=== PATIENT | female | born 1960 | race Caucasian/White ===

== ENCOUNTER 2020-12-17 14:26 | Outpatient (REF) | payer OTHER, SELFPAY ==
[2020-12-17 15:41] LABS: Alanine Aminotransferase 11 U/L (0-31); Albumin Level 4.7 g/dL (3.5-5.0); Alkaline Phosphatase 48 U/L (39-117); Aspartate Amino Transferase 13 U/L (5-31); Bilirubin Direct < 0.2 mg/dL (0.0-0.5); Bilirubin Total 0.3 mg/dL (0.0-1.0); Total Protein 7.3 g/dL (6.5-8.0)
== END 2020-12-17 14:27 | disposition home or self-care (01) ==
LOC: HO.LAB 14:26
PROVIDERS: PCP Internal Medicine; Visit Provider Psychiatry & Neurology Neurology
DX: G40.209 Localization-related (focal) (partial) symptomatic epilepsy and epileptic syndromes with complex partial seizures, not intractable, without status epilepticus (principal)
CPT/HCPCS: 36415; 80076

== ENCOUNTER 2021-01-28 16:38 | Emergency (ER) | payer OTHER, SELFPAY ==
--- NOTE | ~2021-01-28 | CT_ITS ---
EXAMINATION: CT HEAD WITHOUT CONTRAST CLINICAL INFORMATION: Headache COMPARISON: MR dated 07/23/2015 TECHNIQUE: Contiguous axial imaging was performed from the skull base to vertex without intravenous administration of contrast. This CT examination was performed using dose optimization techniques as appropriate, variously including the following: *Automated exposure control *Adjustment of mA and/or kV according to patient size (this includes techniques or standardized protocols for targeted exams where dose is matched to indication/reason for exam; i.e. extremities or head) *Use of iterative reconstruction technique DLP: 567 mGy-cm FINDINGS: There is no evidence of acute intracranial hemorrhage or territorial infarction. No abnormal mass effect or midline shift is seen. Brannon to white matter differentiation is well preserved. No extra-axial fluid collections are identified. The ventricles are normal in size. There is no abnormal attenuation within the brain parenchyma. The osseous structures and soft tissues are normal. The mastoid air cells and visualized portions of the paranasal sinuses are well aerated. CT/CT head/brain wo con IMPRESSION: No acute intracranial pathology. We understand the patient is to undergo CTA which is ordered.
--- NOTE | ~2021-01-28 | CT_ITS ---
EXAMINATION: CT ANGIOGRAM BRAIN, HEAD CLINICAL INFORMATION: Headaches. COMPARISON: Concurrent CT scan of the head 01/28/2021, and MRI brain 07/23/2015. TECHNIQUE: Test bolus sequences followed by intravenous administration 75 mL of Omnipaque 350 intravenous contrast. Helical imaging was performed in the axial plane from the skull base to the vertex. Delayed postcontrast imaging of the head was also performed. The data was processed at the electroencephalogram technologist workstation for generation of MIP sequences. Three-dimensional volume rendered reformatted images were also generated at an offline 3-D workstation. The degree of stenosis determined by NASCET criteria. This CT examination was performed using dose optimization techniques as appropriate, variously including the following: *Automated exposure control *Adjustment of mA and/or kV according to patient size (this includes techniques or standardized protocols for targeted exams where dose is matched to indication/reason for exam; i.e. extremities or head) *Use of iterative reconstruction technique DLP: 2440 mGy-cm FINDINGS: CT Head: There is no evidence of acute intracranial hemorrhage or territorial infarction. No abnormal mass-effect or midline shift is seen. Brannon to white matter differentiation is well preserved. No extra-axial fluid collections are identified. The study redemonstrates a right frontal lobe developmental venous anomaly. The ventricles are normal in size. There is no abnormal attenuation within the brain parenchyma. There are no acute osseous findings. The soft tissues are normal. There is an area of sclerosis in the lateral recess of the right sphenoid sinus, which are consistent with a small osteoma. The mastoid air cells and visualized portions of the paranasal sinuses are well-aerated. CTA Head: In the anterior circulation, there is slight asymmetry of the caliber of the cavernous internal carotid arteries, slightly more prominent on the left. However, the vessels have smooth caliber. The A1 segment of the right anterior cerebral artery is hypoplastic, which is likely a normal variant, and both A2 segments of the anterior cerebral arteries arise off the left anterior cerebral artery A1 segment. The middle cerebral arteries bilaterally demonstrate normal caliber with no evidence of focal stenosis, aneurysm or vascular malformation. There is normal arborization of the middle cerebral artery branches. As described above there is a right frontal lobe developmental venous anomaly. In the posterior circulation, the right vertebral artery is dominant. The vertebral arteries intradurally have uniform caliber. The basilar artery appears normal. The right posterior cerebral artery has a origin and arises off the anterior circulation. Both posterior cerebral arteries are widely patent The venous sinuses opacify normally. CT/CT angio head IMPRESSION: 1. There are no acute bleeds or territorial infarcts. No masses are demonstrated. There is a right frontal lobe developmental venous anomaly. 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 2. There is slight asymmetry of the caliber of the intracranial internal carotid arteries, slightly more prominent on the left, but the vessels have smooth caliber bilaterally. The right posterior cerebral artery arises directly off the anterior circulation, which is a normal variant. There is no evidence of focal stenosis or aneurysm.
[2021-01-28 16:45] VITALS: BP 179/95; PULSE 86; RESP 19; TEMP 36.6; O2SAT 100; BMI 23.0
--- NOTE | 2021-01-28 17:12 | ED_ITS ---
HPI - Neuro Symptoms/Deficit General Chief Complaint: Neuro Symptoms/Deficit Stated Complaint: Headache/Confusion Time Seen by Provider: 01/28/21 16:55 Source: patient Mode of arrival: ambulatory Limitations: no limitations History of Present Illness HPI Narrative: This is a 60-year-old female history of migraine was sent from Dr. Newsome (neurology) office for evaluation of status migrainous associated with involuntary jerky movement. Symptoms started 4 days ago the migraine headache is constant for the past 4 d ays respond partially to Excedrin migraine now it is 5/10, it is localized to the right side of the head. Headache is associated with involuntary jerking movement of upper extremities without loss of consciousness, patient is aware of the symptoms. Patient otherwise declined any other symptoms. Related Data Allergies Allergy/AdvReac Type Severity Reaction Status Date / Time No Known Allergies Allergy Verified 01/28/21 16:44 Review of Systems Review of Systems: All other systems are reviewed and are negative Constitutional: Reports as per HPI and Reports no additional constitutional complaints Eyes: Reports as per HPI and Reports no additional eye complaints Reports system reviewed and no additional complaints, except as documented Cardiovascular: Reports as per HPI and Reports no additional cardiovascular complaints Respiratory: Reports as per HPI and Reports no additional respiratory complaints Gastrointestinal: Reports as per HPI and Reports no additional gastrointestinal complaints Genitourinary: Reports no additional female genitourinary complaints Musculoskeletal: Reports no additional musculoskeletal complaints Skin/Breast: Reports system reviewed and no additional complaints, except as docu Psychiatric: Reports no additional psychiatric complaints Endocrine: Reports no additional endocrine complaints Hematologic/Lymphatic: Reports no additional hematologic/lymphatic complaints Allergic/Immunologic: Reports no additional allergic/immunologic complaints Reports system reviewed and no additional complaints, except as documented and Reports Abnormal speech present [facility] Social History Social History Alcohol intake: unknown Patient Tobacco Use Status: Never used Tobacco Use of substances other than those prescribed or required for medical reasons: No Advance Directives: No Advance Directives Information Provided: No Physical Exam Vital Signs: Vital Signs: Last Vital Signs Temp 98.1 F 01/28/21 19:03 Pulse 87 01/28/21 22:04 Resp 14 01/28/21 22:04 BP 121/62 01/28/21 22:04 Pulse Ox 100 01/28/21 22:04 Body Mass Index 23.0 Vital signs have been reviewed as appeared to be correct. Blood pressure normal. Heart rate normal. Respiration rate normal. Temperature normal. Oxygen saturation normal. Appearance: Alert. Oriented X3. No acute distress. Head: Normal external exam. Normocephalic. Atraumatic. No Gill signs noted. No raccoon eyes noted Eyes: PERRLA. EOMI. Conjunctiva and sclera normal. Eyelids normal. ENT: TM's Normal. Pharynx normal. Uvula midline. Moist mucous membranes. No trismus noted. No drooling noted. No muffled voice noted. Neck: Normal inspection. Neck supple. FROM. No adenopathy. Thyroid Normal. No meningeal signs. No neck mass noted. CVS: Normal heart rate and rhythm. Heart sound normal. No murmurs noted. Pulses normal throughout. Respiratory: No respiratory distress. Painless inspiration. Breath sounds normal. No wheezes/rales/rhonchi noted. Chest nontender. No accessory muscle usage noted or decreased air movement noted. Abdomen: Soft and nontender. Bowel sounds normal in all 4 quadrants. No distention noted. No organomegaly noted. No visible injury noted. Back: No CVA tenderness. Full range of motion noted. Skin: Skin warm and dry. Normal skin color. Normal skin turgor. No rashes/lesions/lacerations noted. Extremities: No lower extremity edema. Extremities exhibit normal range of motion. Extremities nontender. Neuro: Oriented X 3. Cranial nerve exam: II-XII are grossly intact No motor deficit. No sensory deficit. Reflexes normal. Course Course Course Narrative: Assessment and plan. 60-year-old female known history of migraine was sent from the neurology office for suspicion of status migrainosus, patient received a g of Solu-Medrol and pain medication now patient feels better, CT/CTA of the head showed no acute pathology, the case was discussed with Dr. Newsome patient to be discharged and follow-up with them as an outpatient. Patient now feels better with no symptoms no nausea or vomiting, with diminished of the involuntary jerky movements. MDM - Neuro Symptoms/Deficit Medical Records Attestation: I reviewed the patient's medical records. Lab Data Attestation: I reviewed the patient's lab results. Result diagrams: 01/28/21 18:37 01/28/21 18:37 Labs: Lab Results 01/28/21 01/28/21 01/28/21 Range/Units 18:37 18:37 19:07 WBC 6.0 (4.8-10.8) X10*3/uL RBC 4.24 (4.20-5.50) X10*6/uL Hgb 13.7 (12.0-16.0) g/dl Hct 40.8 (37.0-47.0) % MCV 96.2 (80.0-98.0) fL MCH 32.3 (27.0-33.0) pg MCHC 33.6 (31.0-35.0) g/dl RDW 11.9 (11.0-16.0) % Plt Count 222 (160-400) X10*3/uL MPV 10.5 (9.4-12.3) fL Immature Gran % (Auto) 0.3 (0.0-0.4) % Neut % (Auto) 40.8 L (45-73) % Lymph % (Auto) 49.2 H (20-40) % Love % (Auto) 7.8 (2-11) % Eos % (Auto) 0.7 (0-4) % Baso % (Auto) 1.2 (0-2) % Lymph # (Auto) 3.0 (1.2-4.9) X10*3/uL Love # (Auto) 0.5 (0.1-1.2) X10*3/uL Eos # (Auto) 0.0 (0.0-0.4) X10*3/uL Baso # (Auto) 0.1 (0.0-0.2) X10*3/uL Abs Immat Gran (auto) 0.02 (0.00-0.03) X10*3/uL Absolute Neuts (auto) 2.5 (2.0-8.3) x10*3/uL Absolute Nucleated RBC 0.000 (0.0-0.012) X10*3/uL Nucleated RBC % (auto) 0.0 (0.0-0.2) /100WBC Sodium 138 (135-145) mmol/L Potassium 4.4 (3.3-5.1) mmol/L Chloride 103 (96-108) mmol/L Carbon Dioxide 26 (22-29) mmol/L Anion Gap 13 (12-20) BUN 17 H (9-16) mg/dL Creatinine 0.69 (0.5-1.4) mg/dL Estim Creat Clear Calc 71.7 Estimated GFR > 60 Random Glucose 92 (60-115) mg/dL Calcium 9.1 (8.4-10.2) mg/dL Total Bilirubin 0.5 (0.0-1.0) mg/dL Direct Bilirubin 0.2 (0.0-0.5) mg/dL AST 13 (5-31) U/L ALT 11 (0-31) U/L Alkaline Phosphatase 47 (39-117) U/L Total Protein 7.2 (6.5-8.0) g/dL Albumin 4.5 (3.5-5.0) g/dL Lipase 50 (8-78) U/L Urine Color STRAW Urine Appearance CLEAR Urine pH 6.0 (5.0-8.0) Ur Specific [place] <= 1.005 (1.005-1.025) Urine Protein NEG (NEG-TRACE) MG/DL Urine Glucose (UA) NEG (NEG) MG/DL Urine Ketones NEG (NEG) MG/DL Urine Blood 2+ H (NEG) Urine Nitrite NEG (NEG) Ur Leukocyte Esterase NEG (NEG) Urine RBC 5-9 H (0) /HPF Urine WBC 0-2 (0-4) /HPF Ur Squamous Epith Cells TRACE /LPF Urine Bacteria TRACE /LPF Imaging Data CT scan - head: Radiologist's impression: No acute intracranial pathology Head CT angiogram: Radiologist's impression: 1. There are no acute bleeds or territorial infarcts. No masses are demonstrated. There is a right frontal lobe developmental venous anomaly. 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 ? 2. There is slight asymmetry of the caliber of the intracranial internal carotid arteries, slightly more prominent on the left, but the vessels have smooth caliber bilaterally. The right posterior cerebral artery arises directly off the anterior circulation, which is a normal variant. There is no evidence of focal stenosis or aneurysm. Discharge Plan Discharge Clinical Impression: Migraine Patient Disposition: Home, Self-Care Instructions: Migraine Headache (ED) Referrals: Rufus Pavon MD [Primary Care Provider] - 2 days Rod Newsome MD [Physician] - 2 days
[2021-01-28] MEDS: 0.9 % Sodium Chloride 1,000 ML 999 ML IVCONT (17:34)
[2021-01-28] MEDS: Morphine Sulfate 2 MG/ML CARTRIDGE 1 MG IVPUSH (17:46)
[2021-01-28] MEDS: methylPREDNISolone Sod Succ 1,000 MG in 0.9 % Sodium Chloride 50 ML 66 MG IV (17:48)
[2021-01-28 17:57] VITALS: BP 142/65; PULSE 84; RESP 20; O2SAT 98
[2021-01-28 18:41] LABS: MANUAL DIFF FLAG NO
[2021-01-28 18:44] LABS: Basophils Absolute Auto 0.1 X10*3/uL (0.0-0.2); Basophils Percent Auto 1.2 % (0-2); Eosinophils Percent Auto 0.7 % (0-4); Hematocrit 40.8 % (37.0-47.0); Hemoglobin 13.7 g/dl (12.0-16.0); Imm Gran Abs Auto 0.02 X10*3/uL (0.00-0.03); Imm Gran Pct Auto 0.3 % (0.0-0.4); Lymphocytes Percent Auto 49.2 % (20-40); Mean Corpuscular HGB Conc 33.6 g/dl (31.0-35.0); Mean Corpuscular Hemoglobin 32.3 pg (27.0-33.0); Mean Corpuscular Volume 96.2 fL (80.0-98.0); Mean Platelet Volume 10.5 fL (9.4-12.3); Monocytes Absolute Auto 0.5 X10*3/uL (0.1-1.2); Monocytes Percent Auto 7.8 % (2-11); Neutrophils Absolute Auto 2.5 x10*3/uL (2.0-8.3); Neutrophils Percent Auto 40.8 % (45-73); Platelet Count 222 X10*3/uL (160-400); Red Blood Count 4.24 X10*6/uL (4.20-5.50); Red Cell Distribution Width 11.9 % (11.0-16.0)
[2021-01-28 18:57] LABS: Alanine Aminotransferase 11 U/L (0-31); Albumin Level 4.5 g/dL (3.5-5.0); Alkaline Phosphatase 47 U/L (39-117); Anion Gap 13 (12-20); Aspartate Amino Transferase 13 U/L (5-31); Bilirubin Direct 0.2 mg/dL (0.0-0.5); Bilirubin Total 0.5 mg/dL (0.0-1.0); Blood Urea Nitrogen 17 mg/dL (9-16); Calcium 9.1 mg/dL (8.4-10.2); Carbon Dioxide 26 mmol/L (22-29); Chloride 103 mmol/L (96-108); Creatinine Clr Calc Pharmacy 71.7; Estimated Glomerular Filt Rate > 60; Glucose Random 92 mg/dL (60-115); Lipase 50 U/L (8-78); Potassium 4.4 mmol/L (3.3-5.1); Sodium 138 mmol/L (135-145); Total Protein 7.2 g/dL (6.5-8.0)
[2021-01-28 19:03] VITALS: BP 147/62; PULSE 74; RESP 18; TEMP 36.7; O2SAT 99
[2021-01-28 19:29] LABS: Appearance Urine CLEAR; Color Urine STRAW; Glucose Urine UA NEG (NEG); Leukocyte Esterase Urine NEG (NEG); Nitrite Urine NEG (NEG); Specific Gravity - Urine <= 1.005 (1.005-1.025); UACC Culture Trigger NO; Urine Blood 2+ (NEG); Urine Ketones NEG (NEG); Urine Protein NEG (NEG-TRACE)
[2021-01-28 19:42] LABS: Bacteria Urine TRACE /LPF; Squamous Epithelial Cell Urine TRACE /LPF; WBC Urine 0-2 /HPF (0-4)
--- NOTE | 2021-01-28 19:45 | PC.NURSE ---
RN assumed care at 1900. Pt alert and oriented x4, calm and cooperative. Pt denies pain. Denies headache, denies dizziness. No ticks noted. Pt states ticks have subsided. IV in right hand maintains intact. Vitals remain stable. Pt ambulated independently and was steady on her feet, ambulating without issues. Pt voided without issues. Pt at CT scan at this time, at bedside. Will continue to monitor.
[2021-01-28] MEDS: iohexoL 350 MG/ML 100 ML INFUS..BTL IV (21:06)
[2021-01-28 21:38] VITALS: BP 131/60; PULSE 85; RESP 19; O2SAT 97
[2021-01-28 22:04] VITALS: BP 121/62; PULSE 87; RESP 14; O2SAT 100
[2021-01-28 22:58] VITALS: BP 126/60; PULSE 90; RESP 18; TEMP 36.9; O2SAT 96
== END 2021-01-28 23:07 | disposition home or self-care (01) ==
PROVIDERS: Emergency Provider Emergency Medicine; PCP Internal Medicine
DX: G43.909 Migraine, unspecified, not intractable, without status migrainosus (principal)
CPT/HCPCS: 36415; 70450; 70496; 80048; 80076; 81001; 83690; 85025; 96365; 96375; 99285; J2270; J2930; Q9967

== ENCOUNTER 2024-12-09 14:52 | Outpatient (AMB) | payer OTHER, SELFPAY ==
--- NOTE | 2024-12-09 14:54 | MHC.OFFVIS ---
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 [facility] Social History Alcohol intake: unknown Patient Tobacco Use Status: Never used Tobacco Review of Systems Const Denies chills, Denies daytime sleepiness, Denies difficulty sleeping, Denies fatigue, Denies fever(s), Denies frequent falls, Reports headache(s), Denies increased appetite, Denies poor appetite, Denies snoring, Denies weakness, Denies weight gain and Denies weight loss Eyes Denies loss of vision ENT Denies vertigo, Denies dizziness and Reports headache(s) Card Denies chest pain at rest, Denies chest pain with activity, Denies syncope, Denies leg edema and Denies palpitations Resp Denies snoring GI Denies constipation, Denies heartburn, Denies diarrhea and Denies nausea Denies urinary frequency, Denies urinary incontinence and Denies urinary urgency Musc Denies abnormal gait, Denies numbness and Denies tingling Skin/Breast Denies dry skin and Denies rash Neuro Denies abnormal gait, Denies vertigo, Denies dizziness, Denies syncope, Denies frequent falls, Reports headache(s), Denies lack of coordination, Denies loss of vision, Denies memory loss, Denies numbness, Denies restless legs, Denies seizure-like activity, Denies tingling, Denies paresthesias, Reports tremor(s) and Denies weakness Psych Denies anxiety, Denies depression, Denies auditory hallucinations, Denies memory loss, Denies visual hallucinations and Denies suicidal ideation Endo Denies fatigue and Denies palpitations Physical Exam Const Other: General Appearance:? normal, in no acute distress. Skin:? no rashes, no significant birthmarks. Heart:? S1, S2 normal, no murmurs. Lungs:? clear anteriorly and posteriorly. Extremities:? no edema. Psych:? alert, oriented, cognitive function intact, cooperative with exam. Neuro Other: Mental Status: Alert and oriented to person, place, and time. Normal attention. Normal spontaneous speech, fluency, and comprehension. Cranial Nerves: CN II: Visual murcia full to confrontation, visual acuity intact. CN III, IV, : Pupils equal, round, reactive to light and accommodation. Extraocular movements are normal. CN V: Facial sensation is normal. CN VII: Facial movements symmetrical. CN VIII: Hearing intact to bedside conversation is normal. CN IX, X: Palate elevates symmetrically. CN XI: Shoulder shrug and head turn symmetrical. CN XII: Tongue midline without atrophy or fasciculations. Intact to light touch, pinprick, and vibration. Romberg is negative. Extrapyramidal: Full facial expressions and blinking. No rigidity. Movements are appropriate with no tremor or abnormality. Speech: Normal; no dysarthria or tremor. Results Reviewed Results Reviewed: CT and CTA brain at [facility] in Jan 2021: no acute process, R frontal venous anamoly, ?left shpenoid sinus osteoma, no focal stenosis MRI C spine at [facility] in Mar 2016: [place] MRI brain WWO at [facility] in 2015: Right frontal venous angioma, left peietal venous angioma MRI brain at [facility] in 2009: right frontal venous anamoly, left temporal venous anamoly, mild cerebral volume loss MRA brain at [facility] in 2009: no sig finging XR right hip at [facility] in 2015: mild degenerative change and trochanteric bursitis. Assessment & Plan Assessment & Plan (1) Migraine: Code(s): G43.909 - Migraine, unspecified, not intractable, without status migrainosus Category: Medical Qualifiers: Intractability: not intractable Migraine type: unspecified Status migrainosus presence: without status migrainosus Qualified Code(s): G43.909 - Migraine, unspecified, not intractable, without status migrainosus (2) Complex partial seizure: Comment: CT and CTA brain at [facility] in Jan 2021: no acute process, R frontal venous anomaly, ?left sphenoid sinus osteoma, no focal stenosis MRI C spine at [facility] in Mar 2016: [place] MRI brain WWO at [facility] in 2016: Right frontal venous angioma, left parietal venous angioma MRI brain at [facility] in 2009: right frontal venous anomaly, left temporal venous anomaly, mild cerebral volume loss MRA brain at [facility] in 2009: no sig finding XR right hip at [facility] in 2016: mild degenerative change and trochanteric bursitis. Code(s): G40.209 - Localization-related (focal) (partial) symptomatic epilepsy and epileptic syndromes with complex partial seizures, not intractable, without status epilepticus Category: Medical (3) Venous angioma of brain: Code(s): D18.02 - Hemangioma of intracranial structures Category: Medical (4) Migraine equivalent: Code(s): G43.109 - Migraine with aura, not intractable, without status migrainosus Category: Medical (5) Tremor: Code(s): R25.1 - Tremor, unspecified Category: Medical Plan Impression: 1. Complex partial seizure disorder 2. Migraine with sometime complex migraine type of symptoms 3. Mild tremor Recommendations: Lamotrigine 50 mg 2 twice a day Depakote 250 mg extended release 3 a day Education about tremor though no medicine was prescribed at this time. Medications: New divalproex 750 mg (3 x 250 mg) PO ONCE 270 tabs 1RF 90 days lamotrigine 50 mg (2 x 25 mg) PO BID 360 tabs 1RF 90 days Coding Level of Care Code Est Pt Level 4 (11482) Diagnoses Migraine without status migrainosus, not intractable, unspecified migraine type G43.909 Intractability: not intractable Migraine type: unspecified Status migrainosus presence: without status migrainosus Complex partial seizure G40.209 Venous angioma of brain D18.02 Migraine equivalent G43.109 Tremor R25.1
== END 2024-12-09 15:21 | disposition home or self-care (01) ==
PROVIDERS: PCP Internal Medicine; Visit Provider Registered Nurse
DX: G43.909 Migraine, unspecified, not intractable, without status migrainosus (principal); G40.209 Localization-related (focal) (partial) symptomatic epilepsy and epileptic syndromes with complex partial seizures, not intractable, without status epilepticus; D18.02 Hemangioma of intracranial structures; G43.109 Migraine with aura, not intractable, without status migrainosus; R25.1 Tremor, unspecified
CPT/HCPCS: 99214